=== PATIENT | female | born 1950 | race Caucasian/White ===

== ENCOUNTER 2018-11-29 01:35 | Emergency (ER) | payer MEDICARE ==
[2018-11-29] MEDS ORDERED: DOXYcycline CAP(*) 100 MG PO ONE (02:09)
[2018-11-29] MEDS ORDERED: traMADol TAB* 50 MG PO ONE (02:09)
[2018-11-29] MEDS ORDERED: predniSONE TAB* 50 MG PO ONE (02:10)
--- NOTE | 2018-11-29 02:16 | ED ---
Bite Injury/Animal - HPI Summary HPI Summary: This pt is a 68 Y/O F presenting to [facility] with her and a CC of a bee sting to her R posterior lateral ankle on 11/27/18 and is rated a 5/10 in severity. She states that she talked to her doctor who recommended putting ice on the wound and taking a baby aspirin after the injury had occurred. She stated that the pain has gotten worse and the ankle has swollen and became red on 11/28/18 and into 11/29/18. She denies a fever, CP, abdominal pain, N/V/D, and a headache. She stated that she had no alleviating factors. - History of Current Complaint Chief Complaint: EDAnimalBite Stated Complaint: BEE STING ON ANKLE PAIN PER PT Time Seen by Provider: 11/29/18 02:05 Hx Obtained From: Patient Onset of Injury: Happened days ago - 2, Still Present, Worse Since - 11/28/18 Type of Bite: Wild Animal Severity Initially: Moderate Severity Currently: Moderate Pain Intensity: 5 Pain Scale Used: 0-10 Numeric Character: Puncture Aggravating Factor(s): Nothing Alleviating Factor(s): Nothing Associated Signs And Symptoms: Positive: Negative - fever, CP, abdominal pain, N /V/D, and a headache., Erythema, Swelling. Negative: Fever - Allergies/Home Medications Allergies/Adverse Reactions: Allergies Allergy/AdvReac Type Severity Reaction Status Date / Time No Known Allergies Allergy Verified 11/29/18 01:42 Home Medications: Home Medications Montelukast Sodium 10 mg PO DAILY 11/29/18 [History Confirmed 11/29/18] Zolpidem Tartrate 5 mg PO BEDTIME PRN 11/29/18 [History Confirmed 11/29/18] PMH/Surg Hx/FS Hx/Imm Hx Previously Healthy: Yes Musculoskeletal History: Reports: Hx Arthritis Sensory History: Reports: Hx Contacts or Glasses Opthamlomology History: Reports: Hx Contacts or Glasses - Cancer History Hx Chemotherapy: No Hx Radiation Therapy: No - Immunization History Immunizations Up to Date: Yes Infectious Disease History: No Infectious Disease History: Denies: Traveled Outside the [place] in Last 30 Days - Social History Alcohol Use: Occasionally Substance Use Type: Reports: None Smoking Status (MU): Former Smoker Review of Systems Negative: Fever, Chills Negative: Chest Pain Negative: Abdominal Pain, Vomiting, Diarrhea, Nausea Positive: Other - swelling, erythema, warmth over sting Negative: Headache All Other Systems Reviewed And Are Negative: Yes Physical Exam - Summary Physical Exam Summary: VITAL SIGNS: Reviewed. GENERAL: Patient is a well-developed and nourished female who is lying comfortable in the stretcher. Patient is not in any acute respiratory distress. HEAD AND FACE: No signs of trauma. No ecchymosis, hematomas or skull depressions. No sinus tenderness. EYES: PERRLA, EOMI x 2, No injected conjunctiva, no nystagmus. EARS: Hearing grossly intact. Ear canals and tympanic membranes are within normal limits. MOUTH: Oropharynx within normal limits. NECK: Supple, trachea is midline, no adenopathy, no JVD, no carotid bruit, no c- spine tenderness, neck with full ROM CHEST: Symmetric, no tenderness at palpation LUNGS: Clear to auscultation bilaterally. No wheezing or crackles. CVS: Regular rate and rhythm, S1 and S2 present, no murmurs or gallops appreciated. ABDOMEN: Soft, non-tender. No signs of distention. No rebound no guarding, and no masses palpated. Bowel sounds are normal. EXTREMITIES: FROM in all major joints, no edema, no cyanosis or clubbing. NEURO: Alert and oriented x 3. No acute neurological deficits. Speech is normal and follows commands. SKIN: Dry and warm, Swelling tenderness with erythema and warmness estela the posterior lateral aspect of the R foot Triage Information Reviewed: Yes Vital Signs On Initial Exam: Initial Vitals Temp Pulse Resp BP Pulse Ox 98.9 F 70 16 140/87 97 11/29/18 01:38 11/29/18 01:38 11/29/18 01:38 11/29/18 01:38 11/29/18 01:38 Vital Signs Reviewed: Yes Diagnostics - Vital Signs Vital Signs Temp Pulse Resp BP Pulse Ox 11/29/18 01:38 98.9 F 70 16 140/87 97 - Laboratory Lab Statement: Any lab studies that have been ordered have been reviewed, and results considered in the medical decision making process. Bite Injury Course/Dx - Course Course Of Treatment: This pt is a 68 Y/O F presenting to [facility] with her and a CC of a bee sting to her R posterior lateral ankle on 11/27/18 and is rated a 5/10 in severity. She states that she talked to her doctor who recommended putting ice on the wound and taking a baby aspirin after the injury had occurred. Her PE found that she had Swelling tenderness with erythema and warmness estela the posterior lateral aspect of the R foot. She will be discharged home with ABX and pain medications and a Dx of localized allergic reaction and cellutitis. - Diagnoses Differential Diagnosis/HQI/PQRI: Positive: Cellulitis Provider Diagnosis: Cellulitis of foot, Bee sting allergy Discharge - Sign-Out/Discharge Documenting (check all that apply): Patient Departure - discharge Patient Received Moderate/Deep Sedation with Procedure: No - Discharge Plan Condition: Stable Disposition: HOME Patient Education Materials: Insect Bite or Sting (ED), Cellulitis (ED) Referrals: Rowena Krishnamurthy MD [Primary Care Provider] - 2 Days Additional Instructions: please follow up with your primary care physician in 2-3 days and return to the emergency department with any new or worsening symptoms. Take the medications listed as directed. - Attestation Statements Document Initiated by Scribe: Yes Documenting Scribe: Adrien Reyna Provider For Whom Nikhil is Documenting (Include Credential): Mika Salazar MD Scribe Attestation: Adrien Bennett, scribed for Mika Salazar MD on 11/29/18 at 0224. Status of Scribe Document: Ready
[2018-11-29 02:54] VITALS: BP 121/64
== END 2018-11-29 02:53 | disposition home or self-care (01) ==
LOC: ED 01:35
DX: L03.115 Cellulitis of right lower limb (principal); T63.441A Toxic effect of venom of bees, accidental (unintentional), initial encounter; Y92.9 Unspecified place or not applicable; Z87.891 Personal history of nicotine dependence
CPT/HCPCS: 99282; A9270-GY; J7512